=== PATIENT | female | born 1960 | race Caucasian/White ===

== ENCOUNTER 2017-06-14 10:21 | Outpatient (CLI) | payer BC | END 2017-06-14 10:22 | disposition home or self-care (01) | LOC: BICRAD 10:21 | PROVIDERS: ATTEND Internal Medicine Rheumatology | DX: M17.0 Bilateral primary osteoarthritis of knee (principal) ==

== ENCOUNTER 2019-03-05 11:08 | Outpatient (CLI) | payer BC ==
--- NOTE | 2019-03-05 11:44 | RAD ---
CERVICAL SPINE: 3 views INDICATIONS:Cervical pain COMPARISON:None FINDINGS: Cervical vertebra maintain normal height. There is straightening of the lordotic curvature. Loss of disc space at C5-6. Mild disc narrowing at C6-7. Posterior spondylosis is prominent C5-6 encroaching into the spinal canal. Mild facet hypertrophy. No evidence of fracture. No soft tissue abnormality identified. IMPRESSION: Degenerative changes cervical spine with straightening of the lordotic curvature. Disc narrowing and spondylosis most pronounced at C5-6.
== END 2019-03-05 11:09 | disposition home or self-care (01) ==
LOC: BICRAD 11:08
PROVIDERS: ATTEND Family Medicine
DX: M54.2 Cervicalgia (principal); M47.812 Spondylosis without myelopathy or radiculopathy, cervical region; M48.02 Spinal stenosis, cervical region
CPT/HCPCS: 72040

== ENCOUNTER 2021-02-10 16:30 | Outpatient (CLI) | payer BC | END 2021-02-10 16:31 | disposition home or self-care (01) | LOC: SLEEPLAB 16:30 | PROVIDERS: ATTEND Family Medicine | DX: G47.9 Sleep disorder, unspecified (principal); G47.33 Obstructive sleep apnea (adult) (pediatric); R53.83 Other fatigue; R06.83 Snoring; F32.9 Major depressive disorder, single episode, unspecified; K21.9 Gastro-esophageal reflux disease without esophagitis; G47.00 Insomnia, unspecified; I10 Essential (primary) hypertension | CPT/HCPCS: 95806 ==

== ENCOUNTER 2021-06-27 17:00 | Outpatient (CLI) | payer BC | END 2021-06-27 17:01 | disposition home or self-care (01) | LOC: SLEEPLAB 17:00 | PROVIDERS: ATTEND Family Medicine | DX: G47.9 Sleep disorder, unspecified (principal); G47.33 Obstructive sleep apnea (adult) (pediatric); R53.83 Other fatigue; R06.83 Snoring; G47.10 Hypersomnia, unspecified; E66.9 Obesity, unspecified; Z68.24 Body mass index [BMI] 24.0-24.9, adult | CPT/HCPCS: 95811 ==

== ENCOUNTER 2022-07-28 14:10 | Outpatient (CLI) | payer BC | END 2022-07-28 14:11 | disposition home or self-care (01) | LOC: SCSRAD 14:10 | PROVIDERS: ATTEND Internal Medicine Rheumatology | DX: M54.50 Low back pain, unspecified (principal); M47.816 Spondylosis without myelopathy or radiculopathy, lumbar region | CPT/HCPCS: 72100 ==